=== PATIENT | male | born 1935 | race Caucasian/White ===

== ENCOUNTER 2021-08-27 09:10 | Outpatient (CLI) | payer MEDICARE, SELFPAY ==
[2021-08-27 09:28] LABS: International Normalized Ratio 1.7; Prothrombin Time (Protime)PT. 19.2 SECONDS (11.7-14.9)
== END 2021-08-27 23:59 | disposition short-term general hospital (02) ==
LOC: LABSPEC 09:12
PROVIDERS: PCP Family Medicine; Referring Provider Family Medicine; Visit Provider Family Medicine
DX: I48.0 Paroxysmal atrial fibrillation (principal)
CPT/HCPCS: 85610

== ENCOUNTER 2021-09-12 12:43 | Outpatient (CLI) | payer MEDICARE, SELFPAY ==
[2021-09-12 13:05] LABS: International Normalized Ratio 2.9; Prothrombin Time (Protime)PT. 29.3 SECONDS (11.7-14.9)
== END 2021-09-12 23:59 | disposition short-term general hospital (02) ==
LOC: LABSPEC 12:45
PROVIDERS: PCP Family Medicine; Visit Provider Family Medicine
DX: I48.0 Paroxysmal atrial fibrillation (principal)
CPT/HCPCS: 85610

== ENCOUNTER 2023-02-13 09:40 | Outpatient (RCR) | payer MEDICARE, SELFPAY ==
[2023-02-13 09:52] VITALS: BP 150/65; PULSE 70; TEMP 35.5
--- NOTE | 2023-02-13 10:41 | PCM.WC.HP ---
History of Present Illness Date of Service: 02/13/23 Chief Complaint: Left lower extremity wound x2 History of Wound: This is a 88-year-old male who presents as a referral to the wound care center today for left lower extremity ulceration x2. Ulcerations noted dorsal lateral third digit overlying the proximal interphalangeal joint/head of the proximal phalanx and plantar medial heel all of the left foot. He is a patient of Dr. Montse DPM and follows with him in his office. Patient has undergone multiple debridements to both ulcerative sites, use of collagen products, 3 applications of Apligraf, and Aquacel. His cover creaser notes failed applications/interventions utilizing these methods. Patient is noted to have PMHx of DM type II with peripheral polyneuropathy, HTN, HLD, BPH, obesity, A-fib, PVD bilateral lower extremity. Patient has been referred to vascular and underwent left lower extremity intervention via angiogram with noted failed procedure. He was referred to the wound care center to see about hyperbaric oxygen treatments to aid in his healing. He denies N/V/F/chills. He denies further complaints. [facility] Medical History (Updated 02/13/23 @ 13:[address] Bernardo Thakkar DPM) Atrial fibrillation Benign hypertension Diabetes type 2, uncontrolled Polyneuropathy due to type 2 diabetes mellitus Home Medications carvedilol 25 mg tablet 25 mg PO BID 01/18/14 [History Last Taken 01/27/14 06:12 25] metformin 1,000 mg tablet 1,000 mg PO BIDCM 01/18/14 [History Last Taken 01/26/14 19:00] multivitamin 1 tab PO DAILY 01/18/14 [History Last Taken Unknown] amiodarone 200 mg tablet 200 mg PO DAILY 08/25/20 [History Last Taken Unknown] amiodarone 200 mg tablet (Pacerone) 100 mg PO DAILY 08/25/20 [History Last Taken Unknown] amlodipine 2.5 mg tablet 2.5 mg PO DAILY 08/25/20 [History Last Taken Unknown] apixaban 5 mg tablet (Eliquis) 5 mg PO BID 08/25/20 [History Last Taken Unknown] furosemide 40 mg tablet 40 mg PO DAILY 08/25/20 [History Last Taken Unknown] gabapentin 300 mg capsule 300 mg PO BID 08/25/20 [History Last Taken Unknown] insulin glargine 100 unit/mL subcutaneous solution 50 unit (0.5 mL) subcut DAILY #20 mL 08/25/20 [Rx Last Taken Unknown] omeprazole 20 mg capsule,delayed release 20 mg PO DAILY 08/25/20 [History Last Taken Unknown] potassium chloride 10 mEq capsule,extended release 10 meq PO DAILY 08/25/20 [History Last Taken Unknown] insulin lispro 100 unit/mL subcutaneous pen 30 unit (0.3 mL) subcut TID #30 mL 10/05/20 [Rx Last Taken Unknown] Allergy/AdvReac Type Severity Reaction Status Date / Time quinapril HCl [From Accupril] AdvReac Other Verified 08/25/20 14:30 Social History (Updated 08/25/20 @ 18:[address] Ankit Domingo MD) Smoking Status: Former smoker ROS Constitutional Constitutional: Denies chills, fatigue or fever(s) Eyes Eyes: Denies blurry vision, double vision or erythema ENT HEENT: Denies dysphagia, nasal congestion, nasal discharge or sore throat Cardiovascular Cardiovascular: Denies chest pain or fatigue Respiratory/Chest Respiratory/Chest: Denies cough, shortness of breath with exertion or wheezing Gastrointestinal Gastrointestinal: Denies abdominal pain, constipation, diarrhea, nausea or vomiting Genitourinary Genitourinary: Denies dysuria, hematuria or urinary urgency Musculoskeletal Musculoskeletal: Denies joint pain, joint stiffness or joint swelling Integumentary Integumentary: Denies lesions, pruritus or rash Neurologic Neurologic: Denies dizziness, numbness or seizures Endocrine Endocrinology: Denies cold intolerance or heat intolerance Hematologic/Lymphatic Hematologic/Lymphatic: Denies easy bleeding or easy bruising Vital Signs Vital Signs Vital Signs: 02/13/23 09:52 Temperature 95.9 F L Temperature Source Temporal Pulse Rate 70 Blood Pressure 150/65 H Blood Pressure Mean 93 Blood Pressure Source Monitor Physical Exam Const alert, oriented x3 and no apparent distress General Appearance: cooperative HEENT normocephalic Eyes General Eye: normal appearance of both eyes Neck General: normal visual inspection Lymph Lymphatic: no lymphadenopathy noted and no lymphedema noted Resp normal respiratory effort Cardio regular rate and regular rhythm Extremity no joint enlargement and no calf tenderness Extremity Narrative: DP and PT pulses nonpalpable bilateral. Capillary fill time is sluggish to digits bilateral. Absence of hair growth to digits. Dermatological: There is unilateral edema noted of the left lower extremity versus right lower extremity. There is skin changes consistent with peripheral arterial disease. +3 pitting edema noted of the left lower extremity. There is a dorsal wound noted to the third digit left foot overlying the PIPJ/proximal phalanx head with some eschar noted. No signs of infection. There is a plantar medial heel ulceration of the left foot with healthy appearing granular base and periwound hyperkeratosis. No purulent drainage, no malodor, no erythema, no palpable fluctuance/bogginess, no visible abscess formation, no lymphangitic streaking. Musculoskeletal: Muscle strength is 5 of 5 age-appropriate. Decreased range of motion to the ankle joint and first metatarsophalangeal joint noted bilateral. Skin no rashes or lesions noted and no jaundice General Skin Exam: dermatitis Neuro moves all extremities Debridement Note Debridement Note No debridement was completed: No debridement was completed today Post-Debridement Measurements and Additional Note: Post-Debridement Measurements/Treatment WC - Nurse 1 - General Ulcer Assessment Start: 02/13/23 09:52 Freq: Status: Active Protocol: ROMAIN Activity Type Activity Date Activity User E-sign Co-sign Detail Recorded Client Recorded Date Recorded By Document 02/13/23 09:52 MITCHELL [id number] 02/13/23 10:10 MITCHELL 02/13/23 09:52 WC - Today's Visit Information Type of service Follow-up Visit (Physician/PASSPORT SUPPORT MANAGER ) Arrival Mode Ambulatory, Walker Patient Identification Verified (Name & Yes ) Patient Requires Transmission-Based No Precautions Finger Stick Blood Sugar(mg/dl) (if 125 indicated): Blood Sugar Stated by Patient Vital Signs Temperature (97.8 F-99.1 F) 95.9 F L Temperature Source Temporal Pulse Rate (60-100) 70 Pulse Location Monitor Blood Pressure (90/60-120/80) 150/65 H Blood Pressure Mean 93 Source Monitor History Since Last Visit- (Skip if this is Patient's initial visit) Left Footwear Regular Shoe Right Footwear Surgical Shoe with pressure relief insole Pain Scale: 0-10 Numeric Is Patient Pain Free? Yes WC - Nurse 1 - General Ulcer Measurement Start: 02/13/23 09:52 Freq: Status: Active Protocol: Activity Type Activity Date Activity User E-sign Co-sign Detail Recorded Client Recorded Date Recorded By Document 02/13/23 09:52 MA [id number] 02/13/23 10:10 AK 02/13/23 09:52 Wound Center Nurse 1 #2 L 3rd toe -Current Size (cm) - Length 0.8 -Current Size (cm) - Width 1.2 -Current Size (cm) - Depth 0.1 -Total Square Cm 0.96 -Date of Last Picture (Recall this 02/13/23 field) -Photo Taken Yes -Undermining/Tunneling No -Circular Undermining No -Change in Wound Grade/Stage No -Exudate Amt Small -Exudate Type Serosanguineous -Wound Margin Distinct, Outline Attached -Granulation Amt Medium (34-66%) -Granulation Quality [place] -Slough/Fibrin Yes -Necrosis Amt Medium (34-66%) -Necrotic Tissue Type Adherent Slough -Structure Exposed N/A -Texture (Subha-wound Skin Appearance) No Abnormality, Assessed -Moisture (Subha-wound Skin Appearance) No Abnormality, Assessed -Color (Subha-wound Skin Appearance) Assessed, Hemosiderin Staining -Temperature (Subha-wound Skin No Abnormality Appearance) (Pt Warm) -Tenderness on Palpation (Subha-wound No Skin Appearance) -Ulcer Cleansing Soap and Water -Foul Odor after Cleansing No -Anesthetic Used 5% Lidocaine Gel #1 L Heel -Current Size (cm) - Length 1.3 -Current Size (cm) - Width 2.3 -Current Size (cm) - Depth 0.6 -Total Square Cm 2.99 -Photo Taken Yes -Tunneling Yes -Tunneling Position (O'clock) 1 -Tunneling Distance (cm) 1.4 -Tunneling Position #2 (O'clock) 7 -Undermining/Tunneling No -Circular Undermining No -Change in Wound Grade/Stage No -Exudate Amt Medium -Exudate Type Serosanguineous -Wound Margin Distinct, Outline Attached -Granulation Amt Large (67-100%) -Granulation Quality Red -Slough/Fibrin Yes -Necrosis Amt Small (1-33%) -Necrotic Tissue Type Adherent Slough -Structure Exposed N/A -Texture (Subha-wound Skin Appearance) Assessed,Callus -Moisture (Subha-wound Skin Appearance) Assessed,Dry/ Scaly -Color (Subha-wound Skin Appearance) Assessed, Hemosiderin Staining -Temperature (Subha-wound Skin No Abnormality Appearance) (Pt Warm) -Tenderness on Palpation (Subha-wound No Skin Appearance) -Ulcer Cleansing Soap and Water -Foul Odor after Cleansing No -Anesthetic Used 5% Lidocaine Gel Right Calf (cm) 39 Right Ankle (cm) 25 Left Calf (cm) 45 Left Ankle (cm) 28 Assessment/Plan Assessment/Plan (1) Atrial fibrillation: CODE(S): I48.91 - Unspecified atrial fibrillation (2) Obesity: CODE(S): E66.9 - Obesity, unspecified QUALIFIERS: Body mass index: BMI 34.0-34.9 Obesity classification: adult class 1 (BMI 30 - 34.9) Obesity type: due to excess calories Serious obesity comorbidity presence: with serious comorbidity Qualified Code(s): E66.09 - Other obesity due to excess calories; Z68.34 - Body mass index [BMI] 34.0-34.9, adult (3) Polyneuropathy due to type 2 diabetes mellitus: CODE(S): E11.42 - Type 2 diabetes mellitus with diabetic polyneuropathy (4) Hyperlipidemia: CODE(S): E78.5 - Hyperlipidemia, unspecified (5) Hypertension: CODE(S): I10 - Essential (primary) hypertension QUALIFIERS: Hypertension type: essential hypertension Qualified Code(s): I10 - Essential (primary) hypertension (6) Non-pressure chronic ulcer of other part of left foot with fat layer exposed: CODE(S): L97.522 - Non-pressure chronic ulcer of other part of left foot with fat layer exposed (7) 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 Montse DPM in office and has undergone weekly debridements over the last several months, collagen supplementation, 3 failed applications of Apligraf, and Aquacel to the wounds of the left foot with no improvement. Patient does have recent HgbA1c of 8.7% which is impacting healing status. He also has intermittent claudication with rest pain and toe cramping. He was referred to vascular specialist at the [facility] where he underwent LEAS on 12/10/2022 which demonstrated right foot DP multiphasic pulse and PT monophasic pulse on Doppler, PVR waveforms normal, DP MARION of 1.27 and PT MARION of 0.88; left foot DP and PT monophasic on Doppler, PVR to the ankle and digit are moderately dampened, MARION DP 0.97, ankle PT 0.42, and TBI 0.18. He then underwent vascular intervention by Dr. Sreekanth Forbes MD on 12/20/2022. 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 We in fact could not penetrate the top cap as it was so hardened. There was no progress even with the back end of a Glidewire or balloon fixation with distal wire manipulation. Retrograde pedal access was not attempted as the pedal arteries were occluded. Procedure was deemed unsuccessful for reconstituting inline flow via the popliteal artery. It is also stated that leg and foot runoff after popliteal artery occlusion there is a reconstitution of the anterior tibial artery which does run down to the foot. The DP is occluded but there is numerous collaterals. Peroneal artery reconstitutes mid leg and to supply the heel via collaterals. He was referred over to the wound center for hyperbaric oxygen chamber. I have reviewed his LEAS from 12/10/2022 and surgical intervention by vascular team from 12/20/2022. I have also reviewed radiographic interpretation of left foot x-ray in which no osteomyelitis was found. I have reviewed documentation with prior treatments performed by Dr. Montse DPM. Exam findings demonstrated nonpalpable pedal pulses DP and PT with sluggish capillary fill time to the digits of the foot. There are skin changes consistent with peripheral vascular disease. There is unilateral edema of the left lower extremity, +3 pitting. 2 ulcerative sites are noted to the left foot. 1 is located dorsal lateral third digit overlying the proximal phalanx head at the second to the plantar medial heel. Plantar medial heel ulceration does demonstrate healthy appearing granular base. No debridement was performed due to the inadequate blood flow that would be sufficient for required healing. Wounds were inspected and currently demonstrate no signs of infection. A Dakin's wet-to-dry dressing was placed over wound sites of the plantar medial left heel and dorsolateral third digit of the left foot. He is to change dressings daily. He is to continue to offload and surgical shoe. Discussed elevating the lower extremities at times of rest to aid in edema control. I did discuss with him that I do not feel that hyperbaric oxygen chamber will provide enough benefit with circulations only via collaterals to aid in healing. Discussed he would still require debridement and possible grafting to achieve healing status, however this is only possible with reconstitution of blood flow to the lower extremity. I discussed seeking vascular referral from the [facility] to see if a retrograde approach could be possible to be now opened anterior tibial artery. I discussed with him risk of infection to the wound sites in which with poor blood flow to the extremity amputation of a toe may not be possible as this will lead to failed wound healing and progression of tissue necrosis secondary to peripheral arterial disease. Discussed with him that this would likely necessitate a BKA/possible AKA. Discussed other options of surgical intervention of BKA/possible AKA to provide healing status as arteries proximal to the popliteal are patent. He voices understanding of our discussion today. I discussed signs and symptoms of infection to observe. Discussed if he experiences redness about the wound sites that moves up the leg or onto the foot, any purulent drainage from the wound sites, increasing foul odor from the wound site, or if he experiences fever greater than 101 degree, fever, nausea, vomiting, or chills that he is to report to the ED as these are signs of a progressing infection. He voices understanding of this today. I do recommend compression therapy to control edema of the lower extremity to aid in offloading of his ulcerative site. Recommend continued offloading with the surgical shoe. At this time he is being discharged from the wound care center today and will follow up back in office with Dr. Willard or with [facility] for possible vascular intervention prior to further debridement.
== END 2023-02-14 23:59 | disposition home or self-care (01) ==
LOC: WC 09:40
PROVIDERS: PCP Family Medicine; Referring Provider Podiatrist Foot & Ankle Surgery; Visit Provider Student in an Organized Health Care Education/Training Program
DX: E11.621 Type 2 diabetes mellitus with foot ulcer (principal); E11.51 Type 2 diabetes mellitus with diabetic peripheral angiopathy without gangrene; L97.522 Non-pressure chronic ulcer of other part of left foot with fat layer exposed; L97.422 Non-pressure chronic ulcer of left heel and midfoot with fat layer exposed; E11.42 Type 2 diabetes mellitus with diabetic polyneuropathy; I48.91 Unspecified atrial fibrillation; Z79.4 Long term (current) use of insulin; I10 Essential (primary) hypertension; E66.09 Other obesity due to excess calories; E78.5 Hyperlipidemia, unspecified; Z87.891 Personal history of nicotine dependence; N40.0 Benign prostatic hyperplasia without lower urinary tract symptoms; Z68.34 Body mass index [BMI] 34.0-34.9, adult; Z79.899 Other long term (current) drug therapy; Z79.84 Long term (current) use of oral hypoglycemic drugs
CPT/HCPCS: 99213; G0463